=== PATIENT | female | born 1955 | race Caucasian/White ===

== ENCOUNTER 2024-04-30 20:47 | Emergency (ER) | payer OTHER, MEDICAID ==
[~2024-04-30] VITALS: Ht 165.1 cm; Wt 45.0 kg
--- NOTE | 2024-04-30 21:00 | ED.PDOC ---
Altered Mental Status HPI Comments 68 y.o female with PMH of liver cirrhosis, pancreatic cancer, DM, and Whipple procedure, presents to the ED for an evaluation of altered mental status. EMS reports patient's family on scene noticed she has been more lethargic for the past 2 days and stated today patient was repetitive and altered. On scene, EMS reports patient was alert and oriented x1, only alert to self and continues in this condition upon ED arrival. Patient's family performed Paracentesis daily at home but was not tapped today. Patient was found supine position at home and is bedbound. Patient is not on hospice at this time. BG on scene read 148. No other information provided as family is not at bedside. Time Seen by MD: 20:51 Reviewed Notes: Nurses Notes, Implementation Specialist Notes, Medications, Allergies Allergies: Coded Allergies: NO KNOWN ALLERGIES (Unverified , 04/30/24) Information Source: Emergency Med Personnel Mode of Arrival: EMS Severity: Moderate, Unable to Care for Self Timing: Days (2) Duration: Since onset Quality: Decreased Alertness, Change in Behavior Recent: Other History of: Diabetes, Other (Liver cirrhosis, pancreatic cancer) Associated Signs and Symptoms: Other Past Medical History PAST MEDICAL HISTORY: Cancer (pancreatic ), DM, Liver Surgical History: Denies all surgeries Surgical History (Other): whipple PATIENT INTAKE REPRESENTATIVE History: No Pertinent PATIENT INTAKE REPRESENTATIVE History Family History Family History: Reviewed,noncontributory to illness Social History Smoker: Non-Smoker Alcohol: Denies ETOH Use Drugs: Denies Drug Use Lives In: Home Constitutional: reports: weakness; denies: chills, diaphoresis, fatigue, fever, malaise, sweats, others EENTM: denies: blurred vision, double vision, ear bleeding, ear discharge, ear drainage, ear pain, ear ringing, eye pain, eye redness, hearing loss, mouth pain, mouth swelling, nasal discharge, nose bleeding, nose congestion, nose pain, photophobia, tearing, throat pain, throat swelling, voice changes, others Respiratory: denies: cough, hemoptysis, orthopnea, SOB at rest, shortness of breath, SOB with excertion, stridor, wheezing, others Cardiovascular: denies: chest pain, dizzy spells, diaphoresis, Dyspnea on exertion, edema, irregular heart beat, left arm pain, lightheadedness, palpitations, PND, syncope, others Gastrointestinal: denies: abdomen distended, abdominal pain, blood streaked bowels, constipated, diarrhea, dysphagia, difficulty swallowing, hematemesis, melena, nausea, poor appetite, poor fluid intake, rectal bleeding, rectal pain, vomiting, others Genitourinary: denies: abnormal vagina bleeding, burning, dyspareunia, dysuria, flank pain, frequency, hematuria, incontinence, pain, , vagina discharge, urgency, others Neurological: denies: dizziness, fainting, headache, left sided numbness, left sided weakness, numbness, paresthesia, pre-existing deficit, right sided numbness, right sided weakness, seizure, speech problems, tingling, tremors, weakness, others Musculoskeletal: denies: back pain, gout, joint pain, joint swelling, muscle pain, muscle stiffness, neck pain, others Integumetry: denies: bruises, change in color, change in hair/nails, dryness, laceration, lesions, lumps, rash, wounds, others Allergic/Immunocompromised: denies: Difficulty Healing, Frequent Infections, Hives, Itching, others Hematologic/Lymphatic: denies: anemia, blood clots, easy bleeding, easy bruising, swollen glands, others Endocrine: denies: excessive hunger, excessive sweating, excessive thirst, excessive urination, flushing, intolerance to cold, intolerance to heat, unexplained weight gain, unexplained weight loss, others Psychiatric: denies: anxiety, bipolar disorder, depression, hopeless, panic disorder, schizophrenia, sleepless, suicidal, others Unable to Obtain due to: Altered Mental Status Physical Exam General Appearance: Moderate Distress (Patient appears to be in [id number] distress due to confusion concerns. Patient appears to be in poor overall health.), Normal HEENT: Normal ENT Inspection, Pharynx Normal, TMs Normal Neck: Full Range of Motion, Non-Tender, Normal, Normal Inspection Respiratory: Chest Non-Tender, Lungs Clear, No Accessory Muscle Use, No Respiratory Distress, Normal Breath Sounds Cardiovascular: No Edema, No JVD, No Murmur, No Gallop, Normal Peripheral Pulses, Regular Rate/Rhythm Breast Exam: Normal Gastrointestinal: No Pulsatile Mass, Soft Genitalia: Deferred Pelvic: Deferred Rectal: Deferred Extremities: No calf tenderness, Normal capillary refill, Non-tender, No pedal edema Neurologic: Depressed Affect, No Motor Deficits, Other (Patient was altered and alert to only self.) Cerebellar Function: NOT DONE Reflexes: NOT DONE Skin: Dry, Normal Color, Warm Lymphatic: No Adenopathy Was a procedure done? Was a procedure done?: No Differential Diagnosis (ALOC) Differential Diagnosis: Dehydration, Hypoglycemia, Encephalopathy, Sepsis, Mass Lesion, Other (Hepatic encephalopathy) Other Differential Diagnosis Sepsis, early onset dementia, viral syndrome X-Ray, Labs, Meds, VS Vital Signs Date Time Temp Pulse Resp B/P (MAP) Pulse Ox O2 Delivery O2 Flow Rate FiO2 04/30/24 20:53 108 04/30/24 20:47 98.3 108 14 98/58 (71) 100 Lab Test 04/30/24 23:17 04/30/24 21:11 Range/Units Lactic Acid Level Pending 4.9 *H 0.4-2.0 mmol/L White Blood Count 6.0 4.4-10.8 10^3/uL Red Blood Count 3.62 L 4.0-5.20 10^6/uL Hemoglobin 12.5 12.2-16.2 g/dL Hematocrit 36.5 36.0-46.0 % Mean Corpuscular Volume 100.7 H 80.0-100.0 fL Mean Corpuscular Hemoglobin 34.6 H 28.0-32.0 pg Mean Corpuscular Hemoglobin Concent 34.3 32.0-36.0 g/dL Red Cell Distribution Width 16.4 H 11.8-14.3 % Platelet Count 227 140-450 10^3/uL Mean Platelet Volume 7.7 6.9-10.8 fL Neutrophils (%) (Auto) 73.5 37.0-80.0 % Lymphocytes (%) (Auto) 14.0 10.0-50.0 % Monocytes (%) (Auto) 11.2 0.0-12.0 % Eosinophils (%) (Auto) 0.8 0.0-7.0 % Basophils (%) (Auto) 0.5 0.0-2.0 % Neutrophils # (Auto) 4.4 1.6-8.6 10 ^3/uL Lymphocytes # (Auto) 0.8 0.4-5.4 10 ^3/uL Monocytes # (Auto) 0.7 0-1.3 10 ^3/uL Eosinophils # (Auto) 0 0-0.8 10 ^3/uL Basophils # (Auto) 0 0-0.2 10 ^3/uL Nucleated Red Blood Cells 0.2 % Sodium Level 126 L 136-145 mmol/L Potassium Level 4.7 3.5-5.1 mmol/L Chloride Level 99 98-107 mmol/L Carbon Dioxide Level 20 20-31 mmol/L Anion Gap 7 5-15 Blood Urea Nitrogen 13 9-23 mg/dL Creatinine 0.67 0.550-1.02 mg/dL Glomerular Filtration Rate Calc 96 >90 mL/min BUN/Creatinine Ratio 19.4 10.0-20.0 Serum Glucose 122 H 74-106 mg/dL Calcium Level 8.4 L 8.7-10.4 mg/dL Total Bilirubin 1.1 H 0.2-1.0 mg/dL Aspartate Amino Transferase (AST) 45 H 13-40 U/L Alanine Aminotransferase (ALT) 33 7-40 U/L Alkaline Phosphatase 423 H 46-116 U/L Ammonia 115 *H 11-32 umol/L B-Type Natriuretic Peptide 77.78 0-100 pg/mL Total Protein 5.8 5.7-8.2 g/dL Albumin 2.6 L 3.2-4.8 g/dL Lipase 16 12-53 U/L Current Medications Medications (Trade) Dose Ordered Sig/Jerri Route Start Time Stop Time Status Last Admin Sodium Chloride 1,000 ml @ 1,000 mls/hr Q1H ONCE IV 04/30/24 22:30 04/30/24 23:29 DC 04/30/24 22:30 X-Ray, Labs, Meds, VS Comment All studies performed the ED were evaluated by me personally. Laboratories revealed a hyponatremia state as well as an elevated lactic acid and elevated ammonia. EKG revealed sinus tachycardia with a rate of 108. LA interval of 117 and QT of 317. Relatively unremarkable EKG. CT of head was unremarkable for any acute intracranial hemorrhage. There was an old lacunar infarct in the right basal ganglia wound that was noted. Some multiple small low-density lesions of the junction of the randall white matter bilaterally. Patient appears to be suffering from hepatic encephalopathy as well as some additional intracranial concerns. Due to the patient's pancreatic cancer as well as her liver drainage port that requires daily evaluation, patient will be transferred to higher level of care for continued management. Spoke with at [facility]. Advised him of patient presentation as well as laboratory and imaging findings. He agreed to accept the patient as a ED to ED transfer. Time of 1ST Reevaluation: 22:51 Reevaluation 1ST: Unchanged Consultation: PCP Patient Education/Counseling: Diagnosis, Treatment, Other (Patient is alert and orientated to self only ) Family Education/Counseling: Diagnosis, Treatment, No Family Present Departure 1 Departure Time of Disposition: 22:53 Impression: Primary Impression: Hepatic encephalopathy Disposition: 02 SHORT TERM HOSPITAL Condition: Fair Discharged With: Self, Relative Critical Care Note Critical Care Time?: No Stability Stability form required: No I personally scribed for SOLEDAD HOLT PAC ([email or web address]) on 04/30/24 at 21:00. Electronically submitted by Linda Callahan ([facility]). SOLEDAD HOLT PAC Apr 30, 2024 21:00
[2024-04-30 21:37] LABS: Basophils # (auto) 0 10 ^3/uL (0-0.2); Basophils % (auto) 0.5 % (0.0-2.0); Eosinophils # (auto) 0 10 ^3/uL (0-0.8); Eosinophils % (auto) 0.8 % (0.0-7.0); Hematocrit 36.5 % (36.0-46.0); Hemoglobin 12.5 g/dL (12.2-16.2); Lymphocytes # (auto) 0.8 10 ^3/uL (0.4-5.4); Mean Corpuscular Hemoglobin 34.6 pg (28.0-32.0); Mean Corpuscular Hgb Conc. 34.3 g/dL (32.0-36.0); Mean Corpuscular Volume 100.7 fL (80.0-100.0); Monocytes # (auto) 0.7 10 ^3/uL (0-1.3); Monocytes % (auto) 11.2 % (0.0-12.0); Neutrophils # (auto) 4.4 10 ^3/uL (1.6-8.6); Neutrophils % (auto) 73.5 % (37.0-80.0); Nucleated Red Blood Cells % 0.2 %; Platelet Count (auto) 227 10^3/uL (140-450); Red Blood Cells 3.62 10^6/uL (4.0-5.20); Red Cell Distribution Width 16.4 % (11.8-14.3)
[2024-04-30 21:51] LABS: Alanine Aminotransferase 33 U/L (7-40); Albumin 2.6 g/dL (3.2-4.8); Alkaline Phosphatase 423 U/L (46-116); Anion Gap 7 (5-15); Aspartate Aminotransferase 45 U/L (13-40); BUN/Creatinine Ratio 19.4 (10.0-20.0); Blood Urea Nitrogen 13 mg/dL (9-23); Calcium 8.4 mg/dL (8.7-10.4); Carbon Dioxide 20 mmol/L (20-31); Chloride 99 mmol/L (98-107); Glucose 122 mg/dL (74-106); Potassium 4.7 mmol/L (3.5-5.1); Sodium 126 mmol/L (136-145)
[2024-04-30 21:52] LABS: Bilirubin, Total 1.1 mg/dL (0.2-1.0); Total Protein 5.8 g/dL (5.7-8.2)
[2024-04-30 21:58] LABS: Lactic Acid w/Reflex 4.9 mmol/L (0.4-2.0)
--- NOTE | 2024-04-30 22:06 | DVH ---
EXAM: CT HEAD WITHOUT CONTRAST INDICATION: ALOC TECHNIQUE: CT of the head without intravenous contrast. Radiation Dose Information: CT Dose: CTDI volume is 51.83 mGy. Dose-length product is 917.98 mGy*cm The dose indicators for CT are the volume Computed Tomography (CT) Dose Index (CTDIvol) and the Dose Length Product (DLP), and are measured in units of mGy and mGy-cm, respectively. These indicators are not patient dose, but values generated from the CT scanner acquisition factors. The report includes radiation exposure data for exposures received during this examination. COMPARISON: None FINDINGS: There is no evidence of acute intracranial hemorrhage, extra-axial collection, mass effect, midline s hift, herniation or hydrocephalus. There is a 9.52 mm low-density area in the posterior limb of the external capsule in the right basal ganglion. Suggesting a lacunar infarct. There are multiple bilateral low-density lesions at the junction of the randall-white matter. Significan ce is uncertain recommend MRI for further evaluation. The ventricles, sulci and cisterns are age appropriate. The randall-white differentiation is intact. Patchy periventricular and subcortical white matter hypoattenuation is nonspecific but may be related to small vessel ischemic disease. The visualized paranasal sinuses and mastoid air cells are clear. The surrounding soft tissues and osseous structures are unremarkable. IMPRESSION: 1. No acute intracranial hemorrhage. 2. Old lacunar infarct right basal ganglion. 3. Multiple small low-density lesions at the junction of the randall white matter bilaterally. Recommend MRI for further evaluation. HS:Y
[2024-04-30 22:08] LABS: Lipase 16 U/L (12-53)
[2024-04-30 22:15] VITALS: PULSE 105
[2024-04-30 22:16] VITALS: PULSE 105; RESP 12; O2SAT 100
[2024-04-30] MEDS: SODIUM CHLORIDE 0.9% 1,000 ML IV ONE (22:30)
[2024-05-01 01:00] VITALS: BP 98/64; PULSE 99; RESP 14; TEMP 98.3; O2SAT 99
--- NOTE | 2024-05-01 02:41 | ECG ---
[facility] Test Date: 2024-04-30 Test Time: 20:53:58 Pat Name: ISACC HALE Department: ED Room: Gender: F Echometer Engineer: : [id number] Requested By: SOLEDAD HOLT Order Number: [id number] Reading MD: Measurements Intervals [place] Rate: 108 P: 60 CO: 117 QRS: 37 QRSD: 60 T: 42 QT: 317 QTc: 425 Interpretive Statements Sinus tachycardia Low voltage, extremity leads Please click the below link to view image of tracing.
== END 2024-04-30 22:31 | disposition short-term general hospital (02) ==
LOC: ER 20:47 → EDBD 20:47 → ER 22:31
DX: K76.82 Hepatic encephalopathy (principal); E11.9 Type 2 diabetes mellitus without complications; Z98.890 Other specified postprocedural states
CPT/HCPCS: 36415; 70450; 80053; 82140; 83605; 83690; 83880; 85025; 93005; 96360; 99285; J7030

== ENCOUNTER 2024-05-27 13:34 | Emergency (ER) | payer OTHER, MEDICAID ==
[~2024-05-27] VITALS: Ht 152.4 cm; Wt 40.0 kg
[2024-05-27 14:49] VITALS: TEMP 98.4
--- NOTE | 2024-05-27 15:19 | ED.PDOC ---
History of Present Illness HPI Comments A 68 YEAR OLD FEMALE PRESENTS TO THE ED WITH COMPLAINT OF HYPOTENSION. PATIENT STATES SHE HAS A HISTORY OF HYPOTENSION, BUT NOTES HER BLOOD PRESSURE LOWER THAN USUAL TODAY IN THE MORNING WHEN SHE CHECKED. PATIENT NOTES HER BASELINE IS IN THE 80S SYSTOLIC AND 60S DIASTOLIC ON A REGULAR BASIS AND STATES SHE TAKES MEDICINE AT HOME TO MANAGE HER HYPOTENSION. PATIENT DENIES VISION CHANGES, FEVER, CHILLS, SHORTNESS OF BREATH, CHEST PAIN, ABDOMINAL PAIN, NAUSEA, VOMITING, HEADACHE, OR OTHER COMPLAINTS. NO OTHER SYMPTOMS OR MODIFYING FACTORS AT THIS TIME. PATIENT IS ALERT, ORIENTED X 4, AND HAS STEADY GAIT. Chief Complaint: Low Blood Pressure Time Seen by MD: 13:53 Reviewed Notes: Nurses Notes, Medications, Allergies Allergies: Coded Allergies: NO KNOWN ALLERGIES (Unverified , 04/30/24) Information Source: Patient Mode of Arrival: Ambulatory Severity: Moderate Timing: Hours Duration: Since onset, Hours Prehospital treatment: None Medication Refill: For: Other (HYPOTENSION) Past Medical History PAST MEDICAL HISTORY: Cancer, DM, Liver Past Medical History (Other): HYPOTENSION Surgical History: Denies all surgeries DISABILITY BENEFITS SPECIALIST History: No Pertinent DISABILITY BENEFITS SPECIALIST History Family History Family History: Reviewed,noncontributory to illness Social History Smoker: Non-Smoker Alcohol: Denies ETOH Use Drugs: Denies Drug Use Lives In: Home Constitutional: denies: chills, diaphoresis, fatigue, fever, malaise, sweats, weakness, others EENTM: denies: blurred vision, double vision, ear bleeding, ear discharge, ear drainage, ear pain, ear ringing, eye pain, eye redness, hearing loss, mouth pain, mouth swelling, nasal discharge, nose bleeding, nose congestion, nose pain, photophobia, tearing, throat pain, throat swelling, voice changes, others Respiratory: denies: cough, hemoptysis, orthopnea, SOB at rest, shortness of b reath, SOB with excertion, stridor, wheezing, others Cardiovascular: reports: others (HYPOTENSION); denies: chest pain, dizzy spells, diaphoresis, Dyspnea on exertion, edema, irregular heart beat, left arm pain, lightheadedness, palpitations, PND, syncope Gastrointestinal: denies: abdomen distended, abdominal pain, blood streaked bowels, constipated, diarrhea, dysphagia, difficulty swallowing, hematemesis, melena, nausea, poor appetite, poor fluid intake, rectal bleeding, rectal pain, vomiting, others Genitourinary: denies: abnormal vagina bleeding, burning, dyspareunia, dysuria, flank pain, frequency, hematuria, incontinence, pain, , vagina discharge, urgency, others Neurological: denies: dizziness, fainting, headache, left sided numbness, left sided weakness, numbness, paresthesia, pre-existing deficit, right sided numbness, right sided weakness, seizure, speech problems, tingling, tremors, w eakness, others Musculoskeletal: denies: back pain, gout, joint pain, joint swelling, muscle pain, muscle stiffness, neck pain, others Integumetry: denies: bruises, change in color, change in hair/nails, dryness, laceration, lesions, lumps, rash, wounds, others Allergic/Immunocompromised: denies: Difficulty Healing, Frequent Infections, Hives, Itching, others Hematologic/Lymphatic: denies: anemia, blood clots, easy bleeding, easy bruising, swollen glands, others Endocrine: denies: excessive hunger, excessive sweating, excessive thirst, excessive urination, flushing, intolerance to cold, intolerance to heat, unexplained weight gain, unexplained weight loss, others Psychiatric: denies: anxiety, bipolar disorder, depression, hopeless, panic disorder, schizophrenia, sleepless, suicidal, others All Other Systems: Reviewed and Negative Physical Exam General Appearance: No Apparent Distress, Normal HEENT: Normal ENT Inspection, PERRL/EOMI, Pharynx Normal, TMs Normal Neck: Full Range of Motion, Non-Tender, Normal, Normal Inspection Respiratory: Chest Non-Tender, Lungs Clear, No Accessory Muscle Use, No Respiratory Distress, Normal Breath Sounds Cardiovascular: No Edema, No JVD, No Murmur, No Gallop, Normal Peripheral Pulses, Regular Rate/Rhythm Breast Exam: Deferred Gastrointestinal: No Organomegaly, Non Tender, No Pulsatile Mass, Normal Bowel Sounds, Soft Genitalia: Deferred Pelvic: Deferred Rectal: Deferred Extremities: No calf tenderness, Normal capillary refill, Normal inspection, Normal range of motion, Non-tender, No pedal edema Musculoskeletal : Apperance: Normal Neurologic: Alert, funeral service apprentice II-XII nml as Tested, No Motor Deficits, Normal Affect, Normal Mood, No Sensory Deficits Cerebellar Function: Normal Reflexes: Normal Skin: Dry, Normal Color, Warm Peripheral Pulses: 2+ carotid (R), 2+ carotid (L) Lymphatic: No Adenopathy Was a procedure done? Was a procedure done?: No Differential Dx Considerations may include: HYPOTENSION, LOW BLOOD PRESSURE READING, WELL CHECK X-Ray, Labs, Meds, VS Vital Signs Date Time Temp Pulse Resp B/P (MAP) Pulse Ox O2 Delivery O2 Flow Rate FiO2 05/27/24 14:49 89 20 100 Room Air 05/27/24 14:49 98.4 89 20 95/59 (71) 100 98.4 05/27/24 13:55 98.4 89 20 92/62 (72) 100 Lab Test 05/27/24 15:30 05/27/24 15:18 Range/Units White Blood Count 6.8 4.4-10.8 10^3/uL Red Blood Count 2.93 L 4.0-5.20 10^6/uL Hemoglobin 10.0 L 12.2-16.2 g/dL Hematocrit 29.8 L 36.0-46.0 % Mean Corpuscular Volume 101.9 H 80.0-100.0 fL Mean Corpuscular Hemoglobin 34.2 H 28.0-32.0 pg Mean Corpuscular Hemoglobin Concent 33.6 32.0-36.0 g/dL Red Cell Distribution Width 15.2 H 11.8-14.3 % Platelet Count 251 140-450 10^3/uL Mean Platelet Volume 8.0 6.9-10.8 fL Neutrophils (%) (Auto) 77.4 37.0-80.0 % Lymphocytes (%) (Auto) 13.0 10.0-50.0 % Monocytes (%) (Auto) 8.8 0.0-12.0 % Eosinophils (%) (Auto) 0.3 0.0-7.0 % Basophils (%) (Auto) 0.5 0.0-2.0 % Neutrophils # (Auto) 5.2 1.6-8.6 10 ^3/uL Lymphocytes # (Auto) 0.9 0.4-5.4 10 ^3/uL Monocytes # (Auto) 0.6 0-1.3 10 ^3/uL Eosinophils # (Auto) 0 0-0.8 10 ^3/uL Basophils # (Auto) 0 0-0.2 10 ^3/uL Nucleated Red Blood Cells 0.1 % Sodium Level 127 L 136-145 mmol/L Potassium Level 5.0 3.5-5.1 mmol/L Chloride Level 98 98-107 mmol/L Carbon Dioxide Level 23 20-31 mmol/L Anion Gap 6 5-15 Blood Urea Nitrogen 19 9-23 mg/dL Creatinine 1.04 H 0.550-1.02 mg/dL Glomerular Filtration Rate Calc 59 >90 mL/min BUN/Creatinine Ratio 18.3 10.0-20.0 Serum Glucose 117 H 74-106 mg/dL Calcium Level 8.6 L 8.7-10.4 mg/dL Magnesium Level 2.2 1.6-2.6 mg/dL Thyroid Stimulating Hormone (TSH) 2.67 0.55-4.78 uIU/mL Urine Color Yellow Yellow Urine Clarity Turbid H Clear Urine pH 5.5 5.0-9.0 Urine Specific [place] 1.016 1.001-1.035 Urine Protein Trace H Negative Urine Ketones Trace Negative Urine Blood Negative Negative /uL Urine Nitrite Negative Negative Urine Bilirubin Negative Negative Urine Urobilinogen Normal Negative mg/dL Urine Leukocyte Esterase 1+ Negative /uL Urine RBC 1 0 - 4 /hpf Urine WBC 6 0 - 5 /hpf Urine Squamous Epithelial Cells Mod <5 /hpf Urine Bacteria Few H None Seen /hpf Urine Hyaline Casts Mod 0 - 2 /lpf Urine Mucus Few None Seen Urine Glucose Normal Normal mg/dL Current Medications Medications (Trade) Dose Ordered Sig/Jerri Route Start Time Stop Time Status Last Admin Sodium Chloride 1 gm ONCE ONCE PO 05/27/24 16:30 05/27/24 16:31 DC 05/27/24 16:50 X-Ray, Labs, Meds, VS Comment EXTERNAL NOTES: NONE LABS ORDERED: CBC, BMP, UA REVIEWED AND INTERPRETED RESULTS: NA 127 IMAGING ORDERED: NONE INDEPENDENT HISTORIANS: NONE TREATMENTS ORDERED: SODIUM 1G PO, UNABLE TO GIVE THE PATIENT IV FLUIDS DUE TO HER HISTORY OF LIVER CIRRHOSIS. PATIENT'S CASE AND RESULTS HAVE BEEN DISCUSSED WITH THE ED ATTENDING PHYSICIAN AND THEY AGREE WITH MY PLAN OF CARE. I HAVE DISCUSSED IMAGING AND LAB RESULTS WITH THE PATIENT AND HAVE INSTRUCTED THE PATIENT TO FOLLOW UP WITH THEIR PCP IN 1-2 DAYS. THE PATIENT FULLY UNDERSTANDS THEIR RESULTS AND ARE AWARE THEY NEED TO FOLLOW UP WITH THEIR PCP FOR FURTHER EVALUATION IF THEIR SYMPTOMS PERSIST. Time of 1ST Reevaluation: 16:58 Reevaluation 1ST: Improved Patient Education/Counseling: Diagnosis, Treatment, Need For Follow Up Family Education/Counseling: Diagnosis, Treatment, Need For Follow Up Medical Screening: No EMC Exist At This Time Departure 1 Departure Time of Disposition: 17:00 Impression: Primary Impression: Chronic hypotension Additional Impression: Hyponatremia Disposition: 01 HOME / SELF CARE / HOMELESS Condition: Stable Additional Instructions: FOLLOW-UP WITH PCP IN 1 TO 2 DAYS. TAKE MEDICATIONS PRESCRIBED. RETURN TO ED FOR ANY NEW OR WORSENING SYMPTOMS. Discharged With: Self, Relative Critical Care Note Critical Care Time?: No Stability Stability form required: No I personally scribed for SONIA HAZEL ([email or web address]) on 05/27/24 at 15:19. Electronically submitted by Hugo Diaz ([email or web address]). SONIA HAZEL May 27, 2024 15:19
[2024-05-27 15:47] LABS: Basophils # (auto) 0 10 ^3/uL (0-0.2); Eosinophils # (auto) 0 10 ^3/uL (0-0.8); Hematocrit 29.8 % (36.0-46.0); Mean Corpuscular Hgb Conc. 33.6 g/dL (32.0-36.0); Monocytes # (auto) 0.6 10 ^3/uL (0-1.3); Nucleated Red Blood Cells % 0.1 %; White Blood Cell 6.8 10^3/uL (4.4-10.8)
[2024-05-27 15:48] LABS: Basophils % (auto) 0.5 % (0.0-2.0); Eosinophils % (auto) 0.3 % (0.0-7.0); Lymphocytes # (auto) 0.9 10 ^3/uL (0.4-5.4); Mean Corpuscular Hemoglobin 34.2 pg (28.0-32.0); Mean Corpuscular Volume 101.9 fL (80.0-100.0); Monocytes % (auto) 8.8 % (0.0-12.0); Neutrophils # (auto) 5.2 10 ^3/uL (1.6-8.6); Neutrophils % (auto) 77.4 % (37.0-80.0); Platelet Count (auto) 251 10^3/uL (140-450); Red Blood Cells 2.93 10^6/uL (4.0-5.20); Red Cell Distribution Width 15.2 % (11.8-14.3)
[2024-05-27 15:57] LABS: Chloride 98 mmol/L (98-107)
[2024-05-27 15:58] LABS: Anion Gap 6 (5-15); Carbon Dioxide 23 mmol/L (20-31)
[2024-05-27 16:03] LABS: BUN/Creatinine Ratio 18.3 (10.0-20.0); Blood Urea Nitrogen 19 mg/dL (9-23); Magnesium 2.2 mg/dL (1.6-2.6)
[2024-05-27 16:10] LABS: Calcium 8.6 mg/dL (8.7-10.4); Glucose 117 mg/dL (74-106); Sodium 127 mmol/L (136-145)
[2024-05-27 16:19] LABS: Urine Bacteria FEW /hpf (None Seen); Urine Blood Negative /uL (Negative); Urine Clarity Turbid (Clear); Urine Color Yellow (Yellow); Urine Hyaline Cast MOD /lpf (0 - 2); Urine Mucus FEW (None Seen); Urine Protein, UAD TRACE (Negative); Urine Specific Gravity 1.016 (1.001-1.035); Urine Urobilinogen Normal (Negative); Urine WBC 6 /hpf (0 - 5); Urine pH 5.5 (5.0-9.0)
[2024-05-27 16:50] VITALS: BP 92/55; PULSE 87; RESP 20; O2SAT 100
[2024-05-27] MEDS: SODIUM CHLORIDE 1 GM TAB PO ONE (16:50)
== END 2024-05-27 17:10 | disposition home or self-care (01) ==
LOC: ER 13:34
DX: I95.89 Other hypotension (principal); E87.1 Hypo-osmolality and hyponatremia; E11.9 Type 2 diabetes mellitus without complications; Z98.890 Other specified postprocedural states
CPT/HCPCS: 36415; 80048; 81001; 83735; 84443; 85025

== ENCOUNTER 2024-06-21 02:16 | Inpatient (IN) | payer OTHER, MEDICAID ==
[~2024-06-21] VITALS: Ht 152.4 cm; Wt 57.6 kg
--- NOTE | 2024-06-21 02:50 | ED.PDOC ---
History of Present Illness HPI Comments 68 year old female brought in by EMS presents to the ED with a chief complaint of hypoglycemia onset today. Per EMS patient is on hospice care, baseline is A&O x4, was found unresponsive. Patient blood glucose was 60 on scene, in route it was 55 and 250mg D10 was given. Upon assestment patient's BS was 200, temperature of 97.6 F, O2 sat 92%. Patient is not able to answer any questions. Past medical history of pancreatic cancer, liver cirrhosis, DM. 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 Temporal wasting, ascites, mild jaundice General Appearance: Cachectic, Other HEENT: Scleral Icterus (L), Other (Scleral icterus) Neck: Full Range of Motion, Non-Tender, Normal, Normal Inspection Respiratory: Chest Non-Tender, Lungs Clear, No Accessory Muscle Use, No Respiratory Distress, Normal Breath Sounds Cardiovascular: No Edema, No JVD, No Murmur, No Gallop, Normal Peripheral Pulses, Regular Rate/Rhythm Breast Exam: Deferred Gastrointestinal: Distended, Other (Ascites) Genitalia: Deferred Pelvic: Deferred Rectal: Deferred Extremities: No calf tenderness, Normal capillary refill, Normal inspection, Normal range of motion, Non-tender, No pedal edema Musculoskeletal : Apperance: Normal Neurologic: Alert, distribution manager II-XII nml as Tested, No Motor Deficits, Normal Affect, Normal Mood, No Sensory Deficits Cerebellar Function: Normal Reflexes: Normal Skin: Jaundice Lymphatic: No Adenopathy Was a procedure done? Was a procedure done?: No Differential Dx Considerations may include: Differential diagnosis includes but not limited to: Liver failure, renal failure, pancreatic metastases to liver and brain, hepatic encephalopathy, and others X-Ray, Labs, Meds, VS Vital Signs Date Time Temp Pulse Resp B/P (MAP) Pulse Ox O2 Delivery O2 Flow Rate FiO2 06/21/24 04:00 85 12 62/38 (46) 91 06/21/24 03:14 96 12 92 Room Air* 0 21 06/21/24 02:47 98.9 96 12 85/42 (56) 92 98.9 06/21/24 02:22 98.5 64 14 94/57 (69) 93 Lab Test 06/21/24 03:05 06/21/24 02:41 Range/Units White Blood Count 17.2 H 4.4-10.8 10^3/uL Red Blood Count 2.25 L 4.0-5.20 10^6/uL Hemoglobin 7.3 L 12.2-16.2 g/dL Hematocrit 22.1 L 36.0-46.0 % Mean Corpuscular Volume 98.3 80.0-100.0 fL Mean Corpuscular Hemoglobin 32.5 H 28.0-32.0 pg Mean Corpuscular Hemoglobin Concent 33.0 32.0-36.0 g/dL Red Cell Distribution Width 15.4 H 11.8-14.3 % Platelet Count 25 L 140-450 10^3/uL Mean Platelet Volume 10.9 H 6.9-10.8 fL Neutrophils (%) (Auto) 79.5 37.0-80.0 % Lymphocytes (%) (Auto) 2.0 L 10.0-50.0 % Monocytes (%) (Auto) 4.3 0.0-12.0 % Eosinophils (%) (Auto) 14.1 H 0.0-7.0 % Basophils (%) (Auto) 0.1 0.0-2.0 % Neutrophils # (Auto) 13.7 H 1.6-8.6 10 ^3/uL Lymphocytes # (Auto) 0.4 0.4-5.4 10 ^3/uL Monocytes # (Auto) 0.7 0-1.3 10 ^3/uL Eosinophils # (Auto) 2.4 H 0-0.8 10 ^3/uL Basophils # (Auto) 0 0-0.2 10 ^3/uL Nucleated Red Blood Cells 0.1 % Platelet Estimate Decreased Large Platelets Few Anisocytosis (manual) Slight Target Cells Few Schistocytes Few Prothrombin Time 43.1 H 9.3-11.8 sec Prothrombin Time INR 4.55 *H 0.9-1.15 Activated Partial Thromboplast Time 113.2 *H 24.5-34.5 SEC Sodium Level 128 L 136-145 mmol/L Potassium Level 3.9 3.5-5.1 mmol/L Chloride Level 103 98-107 mmol/L Carbon Dioxide Level 15 L 20-31 mmol/L Anion Gap 10 5-15 Blood Urea Nitrogen 12 9-23 mg/dL Creatinine 2.05 H 0.550-1.02 mg/dL Glomerular Filtration Rate Calc 26 >90 mL/min BUN/Creatinine Ratio 5.9 L 10.0-20.0 Serum Glucose 142 H 74-106 mg/dL Calcium Level 7.3 L 8.7-10.4 mg/dL Magnesium Level 2.1 1.6-2.6 mg/dL Total Bilirubin 7.2 H 0.2-1.0 mg/dL Aspartate Amino Transferase (AST) 40 13-40 U/L Alanine Aminotransferase (ALT) 21 7-40 U/L Alkaline Phosphatase 204 H 46-116 U/L Ammonia 79 H 11-32 umol/L Total Protein 3.1 L 5.7-8.2 g/dL Albumin 1.7 L 3.2-4.8 g/dL POC Glucose 200 H 70-106 mg/dl Time of 1ST Reevaluation: 03:10 Reevaluation 1ST: Unchanged Time of 2ND Reevaluation: 06:00 Reevaluation 2ND: Unchanged Patient Education/Counseling: Pt Unresponsive Family Education/Counseling: No Family Present Additional Information I reviewed the following notes from patient's past medical encounters: The following tests were ordered, and results were reviewed by me: CBC, CMP, PTPTT, MAGNESIUM, AMMONIA Additional Information was gathered from interviewing the following independent historians: EMS I discussed treatment and results with medical personnel and: patient Departure 1 Departure Time of Disposition: 03:08 (Patient is on home hospice. Patient has a home hospice nurse that has been giving her morphine in the her last dose was just a couple hours ago. Patient is reasonably comfortable. Patient is clearly at the end of life. The family states that the patient does not want CPR or aggressive / invasive measures. Patient will be comfort measures only.) Impression: Primary Impression: Hospice care patient Additional Impressions: Pancreatic malignancy syndrome Comfort measures only status Disposition: 09 ADMITTED INPATIENT Admit to: Med Surg Condition: Guarded Critical Care Note Critical Care Time?: Yes (35 min-critical care time only) Critical care comment: Total critical care time: Approximately 36 minutes Due to a high probability of clinically significant, life threatening deterioration, the patient required my highest level of preparedness to intervene emergently and I personally spent this critical care time directly and personally managing the patient. This critical care time included obtaining a history; examining the patient; pulse oximetry; ordering and review of studies; arranging urgent treatment with development of a management plan; evaluation of patient's response to treatment; frequent reassessment; and, discussions with other providers. This critical care time was performed to assess and manage the high probability of imminent, life-threatening deterioration that could result in multi-organ failure. It was exclusive of separately billable procedures and treating other patients. Stability Stability form required: No Heart Score Heart Score: Heart Score Response (Comments) Value History N/A 0 EKG N/A 0 Age N/A 0 Risk Factors N/A 0 Troponin N/A 0 Total 0 I personally scribed for ADELAIDA FLORES MD ([email or web address]) on 06/21/24 at 02:50. Electronically submitted by Lindy Echavarria ([email or web address]). I personally scribed for ADELAIDA FLORES MD ([email or web address]) on 06/21/24 at 02:52. Electronically submitted by Lindy Echavarria ([email or web address]). ADELAIDA FLORES MD Jun 21, 2024 02:50
[2024-06-21 03:14] VITALS: PULSE 96; RESP 12; O2SAT 92
[2024-06-21 03:23] LABS: Basophils # (auto) 0 10 ^3/uL (0-0.2); Lymphocytes # (auto) 0.4 10 ^3/uL (0.4-5.4); Red Blood Cells 2.25 10^6/uL (4.0-5.20); Red Cell Distribution Width 15.4 % (11.8-14.3); White Blood Cell 17.2 10^3/uL (4.4-10.8)
[2024-06-21 03:25] LABS: Basophils % (auto) 0.1 % (0.0-2.0); Eosinophils # (auto) 2.4 10 ^3/uL (0-0.8); Eosinophils % (auto) 14.1 % (0.0-7.0); Hematocrit 22.1 % (36.0-46.0); Hemoglobin 7.3 g/dL (12.2-16.2); Mean Corpuscular Hemoglobin 32.5 pg (28.0-32.0); Mean Corpuscular Volume 98.3 fL (80.0-100.0); Monocytes # (auto) 0.7 10 ^3/uL (0-1.3); Monocytes % (auto) 4.3 % (0.0-12.0); Neutrophils # (auto) 13.7 10 ^3/uL (1.6-8.6); Neutrophils % (auto) 79.5 % (37.0-80.0); Nucleated Red Blood Cells % 0.1 %; Platelet Count (auto) 25 10^3/uL (140-450)
[2024-06-21 03:41] LABS: Alanine Aminotransferase 21 U/L (7-40); Anion Gap 10 (5-15); Aspartate Aminotransferase 40 U/L (13-40); BUN/Creatinine Ratio 5.9 (10.0-20.0); Blood Urea Nitrogen 12 mg/dL (9-23); Chloride 103 mmol/L (98-107); Magnesium 2.1 mg/dL (1.6-2.6); Potassium 3.9 mmol/L (3.5-5.1)
[2024-06-21 03:48] LABS: Albumin 1.7 g/dL (3.2-4.8); Alkaline Phosphatase 204 U/L (46-116); Bilirubin, Total 7.2 mg/dL (0.2-1.0); Calcium 7.3 mg/dL (8.7-10.4); Carbon Dioxide 15 mmol/L (20-31); Glucose 142 mg/dL (74-106); Sodium 128 mmol/L (136-145); Total Protein 3.1 g/dL (5.7-8.2)
[2024-06-21 03:57] LABS: Prothrombin Time 43.1 sec (9.3-11.8)
[2024-06-21 04:07] LABS: Anisocytosis Slight; Large Platelets FEW; Platelet Estimate Decreased; Target Cell FEW
[2024-06-21 04:09] LABS: INR 4.55 (0.9-1.15); Partial Thromboplastin Time 113.2 SEC (24.5-34.5)
[2024-06-21] MEDS ORDERED: NOREPINEPHRINE 8 MG/250ML KIT 250 ML IV SCH (04:30)
[2024-06-21] MEDS: LACTATED RINGER'S 1,000 ML IV ONE (04:50)
--- NOTE | 2024-06-21 04:59 | DVHHPRES ---
History of Present Illness Resident Creating Document: TRINI BAR RESIDENT History of Present Illness Patient is 68-year-old female with known pancreatic cancer who brought to the hospital by EMS for hypoglycemia. Patient was given IV D5W which corrected hypoglycemia. Patient was on hospice at home. The time of evaluation patient was mildly altered, hypotensive and upper and lower extremity were cold and clammy. Prolonged discussion was done with family and family agreed with DNR DNI and opted for comfort care. Given patient's condition all information was obtained from EMR and family. Past Medical History Pancreatic cancer Past Surgical History Not relevant Family History NAD Past Social History NAD Review of Systems Review of Systems ROS can not be obtained given patient's mental status. Allergies: Coded Allergies: NO KNOWN ALLERGIES (Unverified , 04/30/24) Exam Vital Signs Vital Signs Date Time Temp Pulse Resp B/P (MAP) Pulse Ox O2 Delivery O2 Flow Rate FiO2 06/21/24 04:00 85 12 62/38 (46) 91 06/21/24 03:14 Room Air* 0 21 06/21/24 02:47 98.9 98.9 Exam Patient is altered, not able to answer questions. Patient is comfortably sleeping no signs of acute respiratory distress. Cardiovascular younger S1-S2 regular, rate around 80. No murmur. Respiratory no crackles. Lower extremity swelling 3+. Abdomen soft, no volunteer rigidity or guarding. Labs/Xrays Labs Test 06/21/24 03:05 06/21/24 02:41 Range/Units White Blood Count 17.2 H 4.4-10.8 10^3/uL Red Blood Count 2.25 L 4.0-5.20 10^6/uL Hemoglobin 7.3 L 12.2-16.2 g/dL Hematocrit 22.1 L 36.0-46.0 % Mean Corpuscular Volume 98.3 80.0-100.0 fL Mean Corpuscular Hemoglobin 32.5 H 28.0-32.0 pg Mean Corpuscular Hemoglobin Concent 33.0 32.0-36.0 g/dL Red Cell Distribution Width 15.4 H 11.8-14.3 % Platelet Count 25 L 140-450 10^3/uL Mean Platelet Volume 10.9 H 6.9-10.8 fL Neutrophils (%) (Auto) 79.5 37.0-80.0 % Lymphocytes (%) (Auto) 2.0 L 10.0-50.0 % Monocytes (%) (Auto) 4.3 0.0-12.0 % Eosinophils (%) (Auto) 14.1 H 0.0-7.0 % Basophils (%) (Auto) 0.1 0.0-2.0 % Neutrophils # (Auto) 13.7 H 1.6-8.6 10 ^3/uL Lymphocytes # (Auto) 0.4 0.4-5.4 10 ^3/uL Monocytes # (Auto) 0.7 0-1.3 10 ^3/uL Eosinophils # (Auto) 2.4 H 0-0.8 10 ^3/uL Basophils # (Auto) 0 0-0.2 10 ^3/uL Nucleated Red Blood Cells 0.1 % Platelet Estimate Decreased Large Platelets Few Anisocytosis (manual) Slight Target Cells Few Schistocytes Few Prothrombin Time 43.1 H 9.3-11.8 sec Prothrombin Time INR 4.55 *H 0.9-1.15 Activated Partial Thromboplast Time 113.2 *H 24.5-34.5 SEC Sodium Level 128 L 136-145 mmol/L Potassium Level 3.9 3.5-5.1 mmol/L Chloride Level 103 98-107 mmol/L Carbon Dioxide Level 15 L 20-31 mmol/L Anion Gap 10 5-15 Blood Urea Nitrogen 12 9-23 mg/dL Creatinine 2.05 H 0.550-1.02 mg/dL Glomerular Filtration Rate Calc 26 >90 mL/min BUN/Creatinine Ratio 5.9 L 10.0-20.0 Serum Glucose 142 H 74-106 mg/dL Calcium Level 7.3 L 8.7-10.4 mg/dL Magnesium Level 2.1 1.6-2.6 mg/dL Total Bilirubin 7.2 H 0.2-1.0 mg/dL Aspartate Amino Transferase (AST) 40 13-40 U/L Alanine Aminotransferase (ALT) 21 7-40 U/L Alkaline Phosphatase 204 H 46-116 U/L Ammonia 79 H 11-32 umol/L Total Protein 3.1 L 5.7-8.2 g/dL Albumin 1.7 L 3.2-4.8 g/dL POC Glucose 200 H 70-106 mg/dl Assessment/Plan Assessment/Plan Pancreatic cancer Septic shock Possible DIC Severe protein malnutrition DIANA due to VMN Hyponatremia Hypocalcemia Comfort measure Hospice care Plan/recommendation -prolonged discussion was done with daughter and son. Son is who is making decision for patient. Given underlying chronic condition including pancreatic cancers, patient was on hospice and brought to the hospital for further care. Prolonged discussion was done and family agreed for DNR DNI and opted for comfort measure. Therefore we will not treat aggressively including requiring IV vasopressors, blood products, aggressive IV fluid resuscitation and antibiotics. We will go ahead with pain management and anxiety control with IV morphine and Ativan as needed, will give comfort oxygen as needed. Social service will be consulted for resuming hospice. Family agreed with current plan. Code status discussed greater than 35 minutes, DNR DNI opted for comfort m easure. Plan discussed with Dr. Andujar Plan discussed with: Daughter, Son My Orders Orders - TRINI BAR Procedure Category Date Status Time Admit ADMIT 06/21/24 Transmitted 04:46 Code Status CODE 06/21/24 Transmitted 04:46 Date of Service: Jun 21, 2024 Billing Provider: IVÁN ANDUJAR MD Common Visit Codes: [id number] INP/OBS CARE (HIGH) Secondary Visit Codes: 04152-[id number] CARE PLAN 30 MINUTES TRINI BAR Jun 21, 2024 04:59 IVÁN ANDUJAR MD Jun 22, 2024 10:40
[2024-06-21] MEDS ORDERED: LORazepam 2MG/ML-1ML VIAL IV PRN (05:00)
[2024-06-21] MEDS ORDERED: MORPHINE SULFATE INJ 2 MG/ml SYRG IV PRN ×2 (05:00→15:15)
[2024-06-21] MEDS: ONDANSETRON HCL 4 MG/2 ML VIAL IV ONE (06:03)
[2024-06-21] MEDS: MORPHINE SULFATE 4 MG/ML SYR/VIAL IV ONE (06:03)
[2024-06-21 09:58] VITALS: PULSE 76; RESP 15; O2SAT 95
--- NOTE | 2024-06-21 15:17 | DVH ---
ULTRASOUND ABDOMEN limited, 4 QUADRANTS INDICATION: FLUID CHECK FOR ASCITES Evaluate for ascites. TECHNIQUE: The four quadrants of the abdomen were scanned in munguia-scale to assess for the presence of ascites. N o solid organ assessment was performed. FINDINGS/IMPRESSIONS: Ascites noted in all 4 quadrants of the abdomen.
--- NOTE | 2024-06-21 15:21 | DVHPN2 ---
Progress Note Date Seen: Jun 21, 2024 Medical Necessity Reason Pt with a Central, PICC or Fol: No Subjective Patient reports: No new complaints Review of Systems: HEENT:Normal, CVS:Normal, RESPIRATORY:Normal, GI:Normal, :Normal, MSK:Normal, NEURO:Normal Objective vital signs Vital Sign Date Time Temp Pulse Resp B/P (MAP) Pulse Ox O2 Delivery O2 Flow Rate FiO2 06/21/24 14:00 71 12 86/45 (59) 95 06/21/24 09:58 Room Air* 0 21 06/21/24 08:00 97.6 97.6 medications Current Medications Medications Dose Ordered Sig/Jerri Route Start Time Stop Time Status Last Admin Dose Admin Morphine Sulfate 1 mg Q2HPRN PRN IV 06/21/24 05:00 Lorazepam 1 mg Q1HR PRN IV 06/21/24 05:00 Examination: GENERAL:Normal, HEENT:Normal, NECK:Normal, LUNGS:Normal, CVS:Normal, ABDOMEN:Normal, ABDOMEN:Abnormal (peritoneal catheter), MSK:Normal, SKIN:Normal, NEURO:Normal, :Normal laboratory and microbiology Laboratory Tests 06/21/24 03:05 Test 06/21/24 03:05 Range/Units Serum Glucose 142 H 74-106 mg/dL Problem List/Assessment/Plan Problem List/Assessment/Plan #1 encephalopathy- metabolic/hyperammonia #2 pancreatic cancer- terminal s/p surgery #3 liver failure #4 anemia/thrombocytopenia #5 ? sepsis ?sirs: levaquin #6 severe protein malnutrition #7 dm #8 ascites: paracentesis #9 hyponatremia long discussion with daughter/- explained poor prognosis and need for terminal care- dnr status- time spent 21 mins Plan discussed with: Spouse, Daughter My Orders My Orders Orders - LESTER HAIRSTON MD Procedure Category Date Status Time Body Fluids, Diff. LAB 06/21/24 Logged Cell Count 14:35 Body Fluid Culture W/ MAIKOL 06/21/24 Logged GS 14:35 Albumin; Body Fluid LAB 06/21/24 Logged 14:35 Glucose Body Fluid LAB 06/21/24 Logged 14:35 Lactate LAB 06/21/24 Logged Dehydrogenase, Fluid 14:35 Protein, Body Fluid LAB 06/21/24 Logged 14:35 Abdomen Limited US 06/21/24 Taken 14:41 Morphine Sulfate PHA 06/21/24 Verified Injection 15:15 Levofloxacin Levaquin PHA 06/22/24 Verified 10:00 Levofloxacin Levaquin PHA 06/21/24 Verified 15:15 Complete Blood Count LAB 06/22/24 Verified 06:00 Comprehensive LAB 06/22/24 Verified Metabolic Panel 06:00 PTPTT LAB 06/22/24 Verified 04:00 Date of Service: Jun 21, 2024 Billing Provider: LESTER HAIRSTON MD Common Visit Codes: [id number] INP/OBS CARE(HIGH) Secondary Visit Codes: 67899-[id number] CARE PLAN 30 MINUTES LESTER HAIRSTON MD Jun 21, 2024 15:21
[2024-06-21] MEDS: levoFLOXacin 500MG 100 ML IV ONE (16:18)
[2024-06-21 20:09] VITALS: PULSE 72; RESP 12; O2SAT 96
[2024-06-21 20:52] LABS: INR 3.22 (0.9-1.15); Prothrombin Time 31.3 sec (9.3-11.8)
[2024-06-21 21:42] LABS: Partial Thromboplastin Time 85.5 SEC (24.5-34.5)
[2024-06-21] MEDS: cefTRIAXone 1GM/50ML D5W 50 ML IV SCH (22:16)
[2024-06-21 22:20] VITALS: BP 90/56; PULSE 73; RESP 17; TEMP 97.7; O2SAT 97
[2024-06-22 00:40] VITALS: PULSE 73; RESP 17; O2SAT 97
[2024-06-22 01:00] VITALS: BP 109/57; PULSE 81; RESP 17; TEMP 97.5; O2SAT 95
[2024-06-22] MEDS ORDERED: LACT10SO3 PO (02:39)
[2024-06-22] MEDS ORDERED: GABA-1250 PO (02:39)
[2024-06-22] MEDS ORDERED: PANT40T PO (02:39)
[2024-06-22] MEDS ORDERED: FURO20TA3 PO (02:39)
[2024-06-22] MEDS ORDERED: MIRT1TAB PO (02:39)
[2024-06-22] MEDS ORDERED: MAGN400T40 PO (02:39)
[2024-06-22] MEDS ORDERED: METF-371 PO (02:39)
[2024-06-22] MEDS ORDERED: MIDO5TAB4 PO (02:39)
[2024-06-22] MEDS ORDERED: FERR325T20 PO (02:39)
[2024-06-22] MEDS ORDERED: AMOX500T86 PO (02:39)
[2024-06-22] MEDS ORDERED: PANC2400 PO (02:39)
[2024-06-22] MEDS ORDERED: CHOL20007 PO (02:39)
[2024-06-22] MEDS ORDERED: ONDA-188 PO (02:39)
[2024-06-22] MEDS ORDERED: APIX5TAB PO (02:39)
[2024-06-22] MEDS ORDERED: POLYPOW85 PO (02:39)
[2024-06-22] MEDS ORDERED: PROC10TA6 (02:39)
[2024-06-22] MEDS ORDERED: DICY20TA PO (02:39)
[2024-06-22] MEDS ORDERED: MULT-1018 PO (02:39)
[2024-06-22] MEDS ORDERED: HYDR2.5L4 TOP (02:39)
[2024-06-22 05:00] VITALS: BP 114/55; PULSE 90; RESP 17; TEMP 97.8; O2SAT 93
[2024-06-22 09:00] VITALS: BP 123/60; PULSE 100; RESP 16; TEMP 98.4; O2SAT 93
[2024-06-22] MEDS: levoFLOXacin 250MG 50 ML IV SCH (10:00)
[2024-06-22] MEDS ORDERED: levoFLOXacin 500MG 100 ML IV SCH (10:00)
[2024-06-22 10:49] LABS: Alanine Aminotransferase 36 U/L (7-40); Anion Gap 15 (5-15); BUN/Creatinine Ratio 6.8 (10.0-20.0); Blood Urea Nitrogen 18 mg/dL (9-23); Potassium 4.6 mmol/L (3.5-5.1)
[2024-06-22 10:51] LABS: Hemoglobin 10.1 g/dL (12.2-16.2); Lymphocytes # (auto) 0.4 10 ^3/uL (0.4-5.4); Monocytes # (auto) 0.6 10 ^3/uL (0-1.3); Platelet Count (auto) 37 10^3/uL (140-450)
[2024-06-22 10:57] LABS: Basophils # (auto) 0.1 10 ^3/uL (0-0.2); Basophils % (auto) 0.9 % (0.0-2.0); Eosinophils # (auto) 0.1 10 ^3/uL (0-0.8); Eosinophils % (auto) 0.6 % (0.0-7.0); Hematocrit 32.8 % (36.0-46.0); Lymphocytes % (auto) 2.6 % (10.0-50.0); Mean Corpuscular Hemoglobin 33.2 pg (28.0-32.0); Mean Corpuscular Hgb Conc. 30.6 g/dL (32.0-36.0); Mean Corpuscular Volume 108.4 fL (80.0-100.0); Monocytes % (auto) 3.7 % (0.0-12.0); Neutrophils # (auto) 14.6 10 ^3/uL (1.6-8.6); Neutrophils % (auto) 92.2 % (37.0-80.0); Nucleated Red Blood Cells % 0.1 %; Red Blood Cells 3.03 10^6/uL (4.0-5.20); Red Cell Distribution Width 17.1 % (11.8-14.3); White Blood Cell 15.8 10^3/uL (4.4-10.8)
[2024-06-22 11:07] LABS: Albumin 1.9 g/dL (3.2-4.8); Alkaline Phosphatase 269 U/L (46-116); Aspartate Aminotransferase 68 U/L (13-40); Bilirubin, Total 7.8 mg/dL (0.2-1.0); Calcium 7.9 mg/dL (8.7-10.4); Carbon Dioxide 13 mmol/L (20-31); Chloride 94 mmol/L (98-107); Glucose 249 mg/dL (74-106); Sodium 122 mmol/L (136-145); Total Protein 4.2 g/dL (5.7-8.2)
--- NOTE | 2024-06-22 11:39 | DVHDS2 ---
Discharge Summary Date of Admission Jun 21, 2024 at 04:46 Date of Discharge: Jun 22, 2024 Labs/Diagnostic Data: Laboratory Results Test 06/22/24 09:32 06/21/24 19:51 06/21/24 03:05 06/21/24 02:41 White Blood Count 15.8 10^3/uL (4.4-10.8) Red Blood Count 3.03 10^6/uL (4.0-5.20) Hemoglobin 10.1 g/dL (12.2-16.2) Hematocrit 32.8 % (36.0-46.0) Mean Corpuscular Volume 108.4 fL (80.0-100.0) Mean Corpuscular Hemoglobin 33.2 pg (28.0-32.0) Mean Corpuscular Hemoglobin Concent 30.6 g/dL (32.0-36.0) Red Cell Distribution Width 17.1 % (11.8-14.3) Platelet Count 37 10^3/uL (140-450) Mean Platelet Volume 11.9 fL (6.9-10.8) Neutrophils (%) (Auto) 92.2 % (37.0-80.0) Lymphocytes (%) (Auto) 2.6 % (10.0-50.0) Monocytes (%) (Auto) 3.7 % (0.0-12.0) Eosinophils (%) (Auto) 0.6 % (0.0-7.0) Basophils (%) (Auto) 0.9 % (0.0-2.0) Neutrophils # (Auto) 14.6 10 ^3/uL (1.6-8.6) Lymphocytes # (Auto) 0.4 10 ^3/uL (0.4-5.4) Monocytes # (Auto) 0.6 10 ^3/uL (0-1.3) Eosinophils # (Auto) 0.1 10 ^3/uL (0-0.8) Basophils # (Auto) 0.1 10 ^3/uL (0-0.2) Nucleated Red Blood Cells 0.1 % Sodium Level 122 mmol/L (136-145) Potassium Level 4.6 mmol/L (3.5-5.1) Chloride Level 94 mmol/L (98-107) Carbon Dioxide Level 13 mmol/L (20-31) Anion Gap 15 (5-15) Blood Urea Nitrogen 18 mg/dL (9-23) Creatinine 2.66 mg/dL (0.550-1.02) Glomerular Filtration Rate Calc 19 mL/min (>90) BUN/Creatinine Ratio 6.8 (10.0-20.0) Serum Glucose 249 mg/dL (74-106) Calcium Level 7.9 mg/dL (8.7-10.4) Total Bilirubin 7.8 mg/dL (0.2-1.0) Aspartate Amino Transferase (AST) 68 U/L (13-40) Alanine Aminotransferase (ALT) 36 U/L (7-40) Alkaline Phosphatase 269 U/L (46-116) Total Protein 4.2 g/dL (5.7-8.2) Albumin 1.9 g/dL (3.2-4.8) Prothrombin Time 31.3 sec (9.3-11.8) Prothrombin Time INR 3.22 (0.9-1.15) Activated Partial Thromboplast Time 85.5 SEC (24.5-34.5) Large Platelets Few Anisocytosis (manual) Slight Target Cells Few Schistocytes Few Magnesium Level 2.1 mg/dL (1.6-2.6) Ammonia 79 umol/L (11-32) POC Glucose 200 mg/dl (70-106) Other Laboratory Tests 06/22/24 09:32 Brief Hx & Hospital Course: see dictated note Condition at Discharge: Poor Final Diagnosis/Problems List pancreatic cancer Discharge Disposition: Hospice - Home Discharge Instruct/Medications Diet: Regular Activity: Bed rest Follow Up/Referral: fu with hospice Medications: per hospice Discharge Statement: "Patient was advised to return to the ER or call 911 if any headaches, dizziness, shortness of breath, chest pain, abdominal pain, bleeding, fevers, or worsening of medical condition. Patient was counseled about treatment plan, medications, possible side effects, patientverbalized understanding. All questions were answered to the best of my ability. This discharge took greater then 30 minutes in planning, reviewing documentation, counseling the patient, and discussing with other team members." ASSESSMENT ASSESSMENT Assessment pancreatic cancer Date of Service: Jun 22, 2024 Billing Provider: LESTER HAIRSTON MD Common Visit Codes: 73704-BPN/OBS DISCH DAY >30min LESTER HAIRSTON MD Jun 22, 2024 11:39
--- NOTE | 2024-06-22 12:01 | DVHDS ---
DATE OF DISCHARGE: 06/22/2024 HISTORY OF PRESENT ILLNESS: The patient is a 68-year-old lady who was admitted after she was noted to be hypoglycemic and is on hospice for advanced pancreatic cancer. HOSPITAL COURSE: The patient was noted to be in liver failure. The patient was also in renal failure, hyponatremic, coagulopathic along with anemia and thrombocytopenia. The patient had an abdominal ultrasound that showed evidence of ascites. I have explained to the patient's family including daughter at the bedside about the patient's overall poor prognosis and need for comfort measures. The patient will be discharged on hospice once arrangements have been made. FINAL DIAGNOSES: Therefore, * Encephalopathy, metabolic/hypoglycemic. * Advanced pancreatic cancer with previous treatment. * Acute liver failure. * Anemia with thrombocytopenia. * Questionable systemic inflammatory response syndrome, questionable sepsis. * Severe protein malnutrition. * Coagulopathy. * Diabetes mellitus. * Ascites. * Hyponatremia. * Hospice care. Time spent in discharge planning and review of plan with the patient's family, nursing was 38 minutes. MD MORGAN Rai/SUKHJINDER TID: [id number] RECEIPT: [id number]
[2024-06-22 13:00] VITALS: BP 100/67; PULSE 116; RESP 16; TEMP 98.3; O2SAT 97
[2024-06-22 14:13] LABS: Large Platelets FEW; Macrocytosis Slight; Platelet Estimate Decrea
[2024-06-22 14:16] LABS: Stomatocytes Few
[2024-06-22 16:00] VITALS: BP 134/65; PULSE 112; RESP 16; TEMP 97.6; O2SAT 95
== END 2024-06-22 17:09 | disposition hospice, home (50) | DRG 637 ==
LOC: EDBD 02:16 → ER 02:16 → OVERFLOW 04:46 → EAST 22:30
PROVIDERS: ADMIT Internal Medicine; ATTEND Internal Medicine
DX: E11.649 Type 2 diabetes mellitus with hypoglycemia without coma (principal); E43 Unspecified severe protein-calorie malnutrition; G93.41 Metabolic encephalopathy; K72.00 Acute and subacute hepatic failure without coma; E87.1 Hypo-osmolality and hyponatremia; R18.8 Other ascites; D68.9 Coagulation defect, unspecified; C25.9 Malignant neoplasm of pancreas, unspecified; R65.10 Systemic inflammatory response syndrome (SIRS) of non-infectious origin without acute organ dysfunction; N17.0 Acute kidney failure with tubular necrosis; D69.6 Thrombocytopenia, unspecified; K74.60 Unspecified cirrhosis of liver; D64.9 Anemia, unspecified; Z51.5 Encounter for palliative care; Z85.07 Personal history of malignant neoplasm of pancreas; Z68.22 Body mass index [BMI] 22.0-22.9, adult
CPT/HCPCS: 36415; 76705; 80053; 82140; 82962; 83735; 85025; 85610; 85730; 87081; 99291; G0378